=== PATIENT | female | born 1960 | race Caucasian/White ===

== ENCOUNTER 2016-12-26 23:50 | Emergency (ER) | payer BC ==
--- NOTE | ~2016-12-26 | CT4 ---
[facility] A Service of [facility] RADIOLOGY TEXT RESULTS PATIENT: PAUL SETH LOCATION: [facility] : 60 UNIT #: [id number] AGE: [address]: Bob Welch MD SEX: F ORDER DR: [id number] [facility] [address] [place], [place] [address] [id number] E MR#: [id number] Acc #: [id number] NAME: PAUL SETH. : 1960 SEX: F STUDY DATE/TIME: 12/27/2016 0:56 UNIT: [facility] ROOM: STUDY DESCRIPTION: CT Abd and Pelv Wo Cont Attending Physician: Bob eWlch Ordering Physician: Baljinder Welch M.D. Primary Care Physician: Armaan Cronin M.D. MEDICAL IMAGING REPORT This report is preliminary unless electronic signature is present EXAM CT abdomen and pelvis without contrast HISTORY Right flank pain since last night. History of kidney stones. COMPARISON CT abdomen and pelvis 11/12/[address] exam was performed with one or more of the following radiation dose reduction techniques: automatic exposure control, adjustment of mA and/or kV according to patient size, and iterative reconstruction. FINDINGS Axial images performed through the abdomen and pelvis without contrast. Multiplanar reconstructed images reviewed at a workstation. ABDOMEN: Examination demonstrates right-sided hydronephrosis and hydroureter with a 5 mm distal right ureteral stone. There is a small amount of perinephric edema. The left kidney demonstrates a punctate calcification suggesting nonobstructing stone. Patient is post cholecystectomy. Liver and spleen unremarkable. The pancreas and adrenal glands appear normal. Lung bases normal. GI tract unremarkable. PELVIS: Uterus absent. Bladder is partially decompressed. The osseous structures show degenerative change of the lower lumbar spine. IMPRESSION 5 mm distal right ureteral stone with [id number] hydronephrosis. [facility] A Service of [facility] & [facility] RADIOLOGY TEXT RESULTS PATIENT: PAUL SETH LOCATION: [facility] : 60 UNIT #: [id number] AGE: [address]: Bob Welch MD SEX: F ORDER DR: Dictated by... Patience Salgado M.D. THIS IS AN ELECTRONICALLY VERIFIED REPORT Patience Salgado M.D. at 12/27/2016 10:32 PM TOYA/debra TD: 12/27/2016 02:24 JOB #: [id number] MEDICAL IMAGING REPORT Page 1 of 1 COPY
[~2016-12-26 23:50] MED LIST: ALLERGY10 M1 PO; BENTYL20 MG PO; CIPRO PO; CITRACAL200 M1 PO; DIFLUCAN PO; FLAGYL250 M1 PO; FLUOXETINE HCL20 M1 PO; K-DUR20 ME1 PO; LEVAQUIN750 MG PO; LOMOTIL WHITE2.5 MG PO; LORTAB 10/500 T1 TAB; NEXIUM; PAXIL; PERCOCET 51 UDTAB 5/ PO; PHENERGAN PO; PRENATAL1 TA1 PO; PRILOSEC20 MG PO; VICODIN 5/1 TAB 5/50 PO; ZANTAC150 M1 PO; ZOFRAN8 MG PO
[2016-12-27 00:58] LABS: URINE SOURCE CLEAN CATCH
[2016-12-27 01:05] LABS: URINE APPEARANCE TURBID; URINE BLOOD 3+ (NEG); URINE COLOR ORANGE; URINE GLUCOSE NEG (NEG); URINE KETONE NEG (NEG); URINE LEUKOCYTE ESTERASE 2+ (NEG); URINE NITRATE NEG (NEG); URINE PROTEIN 1+ (NEG); URINE SPECIFIC GRAVITY 1.023 (1.003-1.035)
[2016-12-27 01:10] LABS: CULTURE INDICATED? YES; URBCS1 AUWI INNUM /[HPF] (0-2); URINE BACTERIA AUWI NEG (NEGATIVE); URINE SQUAMOUS EPITHELIAL CELL FEW /[HPF]; UWBCS1 AUWI 25-50 (0-5)
[2016-12-27 01:15] LABS: URINE BILIRUBIN POS (NEG)
[2016-12-27 01:16] LABS: BASOPHIL# 0.1 X10e3 (0-0.3); BASOPHIL% 0.7 % (0-2.5); EOSINOPHIL# 0.3 X10e3 (0-0.7); EOSINOPHIL% 1.9 % (0.0-7.0); HEMATOCRIT 44.7 % (35.0-45.0); HEMOGLOBIN 14.4 gm/dL (12.0-16.0); LYMPHOCYTE# 2.2 X10e3 (1.0-3.5); LYMPHOCYTE% 16.2 % (17.0-45.0); MEAN CELL VOLUME 97.1 FL (83-96); MEAN CORPUSCULAR HEMOGLOBIN 31.2 PG (28-34); MEAN CORPUSCULAR HGB CONC 32.1 g/dL (30-36); MEAN PLATELET VOLUME 9.3 FL (6.5-11.5); MONOCYTE% 7.2 % (3.0-12.0); NEUTROPHIL# 9.9 X10e3 (1.5-7.1); PLATELET COUNT 290 X10e3 (140-420); RED BLOOD COUNT 4.61 X10e (3.90-5.30); RED CELL DISTRIBUTION WIDTH 14.1 % (11.0-15.5); WHITE BLOOD COUNT 13.4 X10e3 (4.0-10.5)
[2016-12-27 01:19] LABS: DIFF IND NO
[2016-12-27 01:34] LABS: CALCIUM SERUM 8.9 mg/dL (8.4-10.2); POTASSIUM 3.8 mmol/L (3.5-5.1)
== END 2016-12-27 03:20 | disposition home or self-care (01) ==
LOC: CED 23:50
PROVIDERS: Emergency Medicine
DX: N13.2 Hydronephrosis with renal and ureteral calculous obstruction (principal); Z90.89 Acquired absence of other organs; Z90.710 Acquired absence of both cervix and uterus; Z88.2 Allergy status to sulfonamides; Z91.040 Latex allergy status; Z79.899 Other long term (current) drug therapy
CPT/HCPCS: 36415; 74176; 80048; 81003; 85025; 87086; 96361; 96374; 96375; 99284; J1885; J2270; J2405